=== PATIENT | female | born 1960 | race Caucasian/White ===

== ENCOUNTER 2020-09-10 23:00 | Emergency (ER) | payer BC ==
[~2020-09-10] VITALS: Ht 160 cm; Wt 68.0 kg
[~2020-09-10 23:00] MED LIST: BENTYL20 MG PO; DICYCLOMINE HCL20 MG PO; FEXOFENADINE H180 MG PO; LOPERAMIDE2 MG PO; NEXIUM40 MG PO; PANTOPRAZOLE SO40 MG PO; REGLAN10 MG PO; SUCRALFATE1 GM PO; ULTRAM50 MG PO
[2020-09-10] MEDS ORDERED: CLINDAMYCIN HC150 MG PO (23:32)
== END 2020-09-10 23:46 | disposition home or self-care (01) ==
LOC: ER 23:44
DX: R21 Rash and other nonspecific skin eruption (principal); K21.9 Gastro-esophageal reflux disease without esophagitis; K58.9 Irritable bowel syndrome, unspecified; F17.210 Nicotine dependence, cigarettes, uncomplicated
CPT/HCPCS: 99282